=== PATIENT | male | born 1985 | race American Indian/Alaskan Native ===

== ENCOUNTER 2017-04-14 07:38 | Emergency (ER) | payer MEDICAID ==
[2017-04-14 08:07] VITALS: O2SAT 99; BMI 30.7
--- NOTE | 2017-04-14 08:28 | ED PDOC ---
Arrival/HPI - General Historian: Patient - History of Present Illness Time/Duration: Prior to Arrival Symptom Onset: Sudden Symptom Course: Unchanged Context: Home <GeorgieEkaterina bennett - Last Filed: 04/14/17 09:48> <Nahid Rm - Last Filed: 04/14/17 14:28> - General Chief Complaint: ENT Problem Time Seen by Provider: 04/14/17 08:06 - History of Present Illness Narrative History of Present Illness (Text): 04/14/17 08:31 31 male with no significant PMH presented to ED with sore throat. Patient states it started 2 days ago, he describes difficulty swallow and taking deep breathes due to the pain in his throat. He denies SOB. Patient was not able to see his PMD and tried to use over the counter throat spray however it did not help. He denies any sick contact, however he does travel for work and recently returned from [place]. He admits to body aches but denies fever, chill, nasal congestion, chest pain, abd pain. Patient states that the day before his sore throat began he had oral sex. Patient also reports small amount of blood per rectum on the tissue. He also reports increase urinary frequency which he believes is due to increase fluid intake. 04/14/17 09:20 (Ekaterina Jacques) Past Medical History - Provider Review Nursing Documentation Reviewed: Yes - Infectious Disease Hx of Infectious Diseases: None - Psychiatric Hx Substance Use: No <GeorgieKhalida bennetta - Last Filed: 04/14/17 09:48> Family/Social History - Physician Review Nursing Documentation Reviewed: Yes Family/Social History: Other (father had liver disease) Smoking Status: Heavy Smoker > 10 Cigarettes Daily Hx Alcohol Use: Yes Frequency of alcohol use: Socially Hx Substance Use: No <GeorgiePerEkaterina - Last Filed: 04/14/17 09:48> Family/Social History: No Known Family HX <Nahid Rm - Last Filed: 04/14/17 14:28> Allergies/Home Meds <GeorgiePerEkaterina - Last Filed: 04/14/17 09:48> <Nahid Rm - Last Filed: 04/14/17 14:28> Allergies/Adverse Reactions: Allergies No Known Allergies Allergy (Verified 04/14/17 08:07) Review of Systems - Review of Systems Constitutional: Normal. absent: Fatigue, Fevers Eyes: Normal. absent: Vision Changes ENT: Sore Throat. absent: Hearing Changes, Sinus Congestion Respiratory: Normal Cardiovascular: Normal. absent: Chest Pain, Palpitations, Edema, Calf Pain, Syncope Gastrointestinal: Normal, Other (blood per rectum ). absent: Abdominal Pain, Constipation, Nausea, Vomiting Genitourinary Male: Normal, Frequency. absent: Dysuria, Hematuria Musculoskeletal: Normal. absent: Arthralgias, Neck Pain, Joint Swelling, Myalgias Skin: Normal. absent: Rash, Pruritis, Laceration, Ulcer Neurological: Normal. absent: Headache, Dizziness, Focal Weakness, Speech Changes Endocrine: Normal. absent: Diaphoresis, Polyuria, Polydipsia Hemo/Lymphatic: Normal. absent: Easy Bleeding, Easy Bruising Psychiatric: Normal <Ekaterina Jacques - Last Filed: 04/14/17 09:48> Physical Exam - Systems Exam Head: Present: Atraumatic, Normocephalic Pupils: Present: PERRL. No: Sluggish, Non-Reactive, Pinpoint Extroacular Muscles: Present: EOMI. No: Gaze Palsy, Entrapment Conjunctiva: Present: Normal. No: Injected, Icteric Mouth: Present: Moist Mucous Membranes Pharnyx: Present: ERYTHEMA, Other (speeching in full). No: EXUDATE, TONSILS ENLARGED, Uvular Deviation, Muffled/Hoarse Voice Neck: Present: Normal Range of Motion Respiratory/Chest: Present: Clear to Auscultation, Good Air Exchange. No: Respiratory Distress, Accessory Muscle Use Cardiovascular: Present: Regular Rate and Rhythm, Normal S1, S2. No: Murmurs Abdomen: Present: Normal Bowel Sounds. No: Tenderness, Distention, Peritoneal Signs Rectal: Present: Other (examin done with chaparone present ). No: Occult Blood , Gross Blood, Hemorrhoids Back: Present: Normal Inspection Upper Extremity: Present: Normal Inspection, NORMAL PULSES. No: Cyanosis, Edema , Normal ROM Lower Extremity: Present: Normal Inspection. No: Edema, CALF TENDERNESS Neurological: Present: GCS=15, CN II-XII Intact, Speech Normal Skin: Present: Warm, Dry, Normal Color. No: Rashes Psychiatric: Present: Alert, Oriented x 3, Normal Insight, Normal Concentration <Ekaterina Jacques - Last Filed: 04/14/17 09:48> Medical Decision Making <Ekaterina Jacques - Last Filed: 04/14/17 09:48> - Lab Interpretations I have reviewed the lab results: Yes <Roque Rmo Italo - Last Filed: 04/14/17 14:28> ED Course and Treatment: 04/14/17 08:45 Impression: 31 yo male no significant PMH presents with sore throat. differential diagnoses include but not limited to: - pharyngitis - Augmentin - UA - GC/chlamydia 04/14/17 09:06 - UA is negative, will call patient with results of STI test. Patient is to follow up with PMD in 1-2 days. Anitbiotic prescriptions given for pharyngitis. (GeorgieEkaterina) Patient seen and examined with resident. Came up with treatment and disposition plan with resident. The patient is a 31 year old male who comes into the emergency department for evaluation of a sore throat and rectal bleeding. Additional HPI details as noted by the resident. On physical examination the patient has erythema of the pharynx but no exudates. Rectal examination shows no gross blood or hemorrhoids. Urinalysis and Chlamydia/GC RNA ordered to rule out UTI vs. STD. Patient given Augmentin and Motrin for the throat discomfort. On re-evaluation, the patient feel better and was is in no acute distress. Results and plan were discussed with the patient, who expresses understanding. Patient in agreement with plan to discharged home. Patient is stable for discharge. Patient was instructed to follow up with physician/clinic in 1-2 days and call in for STD result or return if symptoms worsen or new concerning symptoms arise. (Nahid Rm) - Lab Interpretations Lab Results: Lab Results 04/14/17 07:30: Urine Color Yellow, Urine Appearance Sl cloudy, Urine pH 7.5, Ur Specific [place] 1.020, Urine Protein Negative, Urine Glucose (UA) Negative, Urine Ketones Negative, Urine Blood Negative, Urine Nitrate Negative, Urine Bilirubin Negative, Urine Urobilinogen 0.2, Ur Leukocyte Esterase Negative - Medication Orders Current Medication Orders: Discontinued Medications Amoxicillin/Clavulanate Potassium (Augmentin 500 Mg-125 Mg Tab) 1 tab PO STAT STA PRN Reason: Protocol Stop: 04/14/17 08:30 Last Admin: 04/14/17 08:43 Dose: 1 tab Ibuprofen (Motrin Tab) 800 mg PO STAT STA Stop: 04/14/17 08:53 Last Admin: 04/14/17 09:11 Dose: 800 mg <GeorgieEkaterina bennett - Last Filed: 04/14/17 09:48> - PA / DRAPERY INSPECTOR / Resident Statement MD/DO has reviewed & agrees with the documentation as recorded. MD/DO has examined the patient and agrees with the treatment plan. - Scribe Statement The provider has reviewed the documentation as recorded by the Scribe <Nahid Rm - Last Filed: 04/14/17 14:28> - Scribe Statement Mino Laura Provider Scribe Attestation: All medical record entries made by the Scribe were at my direction and personally dictated by me. I have reviewed the chart and agree that the record accurately reflects my personal performance of the history, physical exam, medical decision making, and the department course for this patient. I have also personally directed, reviewed, and agree with the discharge instructions and disposition. (Nahid Rm) Disposition/Present on Arrival - Present on Arrival Any Indicators Present on Arrival: No History of DVT/PE: No History of Uncontrolled Diabetes: No Urinary Catheter: No History of Decub. Ulcer: No History Surgical Site Infection Following: None - Disposition Have Diagnosis and Disposition been Completed?: Yes Disposition Time: 09:10 <Ekaterina Jacques - Last Filed: 04/14/17 09:48> - Disposition Patient Plan: Discharge <Nahid Rm - Last Filed: 04/14/17 14:28> - Disposition Diagnosis: Pharyngitis Disposition: HOME/ ROUTINE Condition: GOOD Additional Instructions: Brandon Lora, thank you for letting us take care of you today. Your provider was Dr. Jacques and Dr. Jaffe. You were treated for sore throat. The emergency medical care you received today was directed at your acute symptoms. If you were prescribed any medication, please fill it and take as directed. It may take several days for your symptoms to resolve. Return to the Emergency Department if your symptoms worsen, do not improve, or if you have any other problems. Take prescription as instructed. Please contact your doctor or call one of the physicians/clinics you have been referred to that are listed on the Patient Visit Information form that is included in your discharge packet. Bring any paperwork you were given at discharge with you along with any medications you are taking to your follow up visit. Our treatment cannot replace ongoing medical care by a primary care provider (PCP) outside of the emergency department. Thank you for allowing the [facility] team to be part of your care today. If you had an STI test: It will take 48 hours for the results. Please call after 1 week if you have not heard back. Prescriptions: Amoxicillin/Clavulanate [Augmentin 500 MG-125 MG] 1 tab PO BID #14 tab Referrals: Nasir Leal MD [Primary Care Provider] - Follow up with primary Forms: WORK NOTE
[2017-04-14] MEDS ORDERED: Amoxicillin-Clav 500-125 mg Tab PO STA (08:29)
[2017-04-14 08:54] LABS: PH,URINE 7.5 (4.7-8.0); URINE BILIRUBIN NEGATIVE (NEGATIVE); URINE BLOOD NEGATIVE (NEGATIVE); URINE GLUCOSE (UA) NEGATIVE (NEGATIVE); URINE KETONE NEGATIVE (NEGATIVE); URINE LEUKOCYTE ESTERASE NEGATIVE Leu/uL (NEGATIVE); URINE PROTEIN NEGATIVE mg/dL (<30 mg/dL); URINE UROBILINOGEN 0.2 E.U./dL (<1 E.U./dL)
[2017-04-14 08:55] LABS: URINE APPEARANCE SL CLOUDY (CLEAR); URINE COLOR YELLOW (YELLOW)
[2017-04-14 10:16] VITALS: BP 116/73; PULSE 69; RESP 18; TEMP 98.2
== END 2017-04-14 10:16 | disposition home or self-care (01) ==
LOC: MERGE 07:38 → ED 07:38
DX: J02.9 Acute pharyngitis, unspecified (principal)

== ENCOUNTER 2017-06-16 02:22 | Emergency (ER) | payer MEDICAID, OTHER ==
[2017-06-16 02:23] VITALS: BMI 30.7
[2017-06-16 03:05] VITALS: BP 142/75; PULSE 77; RESP 18; TEMP 97.8; O2SAT 99
--- NOTE | 2017-06-16 03:42 | ED PDOC ---
Arrival/HPI - General Chief Complaint: Eye Problem Time Seen by Provider: 06/16/17 03:02 Historian: Patient - History of Present Illness Narrative History of Present Illness (Text): 06/16/17 03:42 31 year old male, presents to the emergency department complaining of left eye pain and swelling that began a few hours ago. Patient also states to have left shoulder pain with no trauma and reports itchy right palm. Patient denies any fever, chills, chest pain, shortness of breath, nausea, vomiting, diarrhea, urinary symptoms, back pain, neck pain, headache, dizziness, or any other complaints. PMD: Dr. Leal Time/Duration: Other (few hours) Symptom Course: Unchanged Activities at Onset: Light Context: Home Past Medical History - Provider Review Nursing Documentation Reviewed: Yes - Infectious Disease Hx of Infectious Diseases: None - Psychiatric Hx Substance Use: No Family/Social History - Physician Review Nursing Documentation Reviewed: Yes Family/Social History: No Known Family HX Smoking Status: Heavy Smoker > 10 Cigarettes Daily Hx Alcohol Use: No Hx Substance Use: No Allergies/Home Meds Allergies/Adverse Reactions: Allergies No Known Allergies Allergy (Verified 06/16/17 03:05) Home Medications: Home Meds Medication Instructions Recorded Confirmed No Known Home Med 06/16/17 06/16/17 Review of Systems - Physician Review All systems were reviewed & negative as marked: Yes - Review of Systems Constitutional: absent: Fevers, Other (chills) Eyes: Eye Pain (left eye pain and swelling) Respiratory: absent: SOB Cardiovascular: absent: Chest Pain Gastrointestinal: absent: Diarrhea, Nausea, Vomiting Genitourinary Male: Normal. absent: Dysuria, Frequency, Hematuria Musculoskeletal: Other (left shoulder pain with no trauma). absent: Back Pain, Neck Pain Skin: Other (itchy right palm) Physical Exam Vital Signs Reviewed: Yes Vital Signs Temp Pulse Resp BP Pulse Ox 06/16/17 03:02 97.8 F 77 18 142/75 99 Temperature: Afebrile Blood Pressure: Normal Pulse: Regular Respiratory Rate: Normal Appearance: Positive for: Well-Appearing Pain Distress: None Mental Status: Positive for: Alert and Oriented X 3 - Systems Exam Head: Present: Atraumatic, Normocephalic, Swelling (Left eye swelling) Pupils: Present: PERRL, Sluggish (left), Other (pressure 32) Extroacular Muscles: Present: EOMI Conjunctiva: Present: Injected Mouth: Present: Moist Mucous Membranes Back: Present: Normal Inspection Upper Extremity: Present: Normal Inspection. No: Cyanosis, Edema Lower Extremity: Present: Normal Inspection. No: Edema Neurological: Present: GCS=15, CN II-XII Intact, Speech Normal Skin: Present: Warm, Dry, Normal Color. No: Rashes Psychiatric: Present: Alert, Oriented x 3, Normal Insight, Normal Concentration Medical Decision Making ED Course and Treatment: 06/16/17 03:43 Impression: 31 year old male present for left eye pain and swelling. Patient also states he has left shoulder pain and an itchy right palm. Plan: -- Timoptic 0.25% Ophth Soln -- Reassess and disposition pt unable to perform va secondary to pain but has intact vision at 24 in with fingers Progress Notes: 06/16/17 03:[address] Osorio who is aware and agrees with the plan. 06/17/17 05:40 - Medication Orders Current Medication Orders: Discontinued Medications Timolol Maleate (Timoptic 0.25% Ophth Soln) 0 drop OS STAT STA Stop: 06/16/17 04:07 Last Admin: 06/16/17 04:43 Dose: 1 drop Comments: left eye - Scribe Statement The provider has reviewed the documentation as recorded by the Scribe Chiqui Samaniego All medical record entries made by the Scribe were at my direction and personally dictated by me. I have reviewed the chart and agree that the record accurately reflects my personal performance of the history, physical exam, medical decision making, and the department course for this patient. I have also personally directed, reviewed, and agree with the discharge instructions and disposition. Disposition/Present on Arrival - Present on Arrival Any Indicators Present on Arrival: No History of DVT/PE: No History of Uncontrolled Diabetes: No Urinary Catheter: No History of Decub. Ulcer: No History Surgical Site Infection Following: None - Disposition Have Diagnosis and Disposition been Completed?: Yes Diagnosis: Acute glaucoma Disposition: HOME/ ROUTINE Disposition Time: 05:15 Condition: GOOD Discharge Instructions (ExitCare): Glaucoma (ED) Additional Instructions: follow up with dr osorio this am Referrals: Nasir Leal MD [Primary Care Provider] - Follow up with primary Saul Osorio MD [Staff Provider] - Follow up with primary Marcell Parra MD [Staff Provider] - Follow up with primary Forms: [email or web address] ([place])
[2017-06-16] MEDS ORDERED: Timolol 0.25% Ophth SOLN OS STA (04:06)
== END 2017-06-16 04:35 | disposition home or self-care (01) ==
LOC: ED 02:22
DX: H40.9 Unspecified glaucoma (principal)